=== PATIENT | male | born 1955 | race American Indian/Alaskan Native ===

== ENCOUNTER 2017-12-10 08:47 | Inpatient (IN) | payer BC, MEDICARE ==
[2017-12-10 08:48] VITALS: BMI 23.7
--- NOTE | 2017-12-10 09:10 | C.PDOC ---
History Of Present Illness 62-year-old male, PMHx includes depression, is transferred from [place] for psych admission. Patient denies any new complaints at this time. (Anais Oseguera) History Per: Patient History/Exam Limitations: no limitations Time Seen by Provider: 12/10/17 08:59 Chief Complaint (Nursing): Psychiatric Evaluation Past Medical History Reviewed: Historical Data, Nursing Documentation, Vital Signs - Medical History PMH: Anxiety, Arthritis, Bipolar Disorder, COPD, Depression, Fractures (history) , HTN, Rheumatoid Arthritis, Schizophrenia Denies: Alzheimer's Disease, Anemia, Asthma, Atrial Fibrillation, Bronchitis , Cardia Arrhythmia, CHF, Crohn's Disease, Dementia, Diabetes, Diverticulitis, Emphysema, Gastritis, Gall Bladder Disease, Hepatitis, HIV, Hypercholesterolemia , Hyperthyroidism, Hypothyroidism, Kidney Stones, Migraine, Mitral Valve Prolapse, Multiple Sclerosis, Osteoporosis, Pancreatitis, Parkinson's Disease, Peripheral Edema, Personality Disorder, Pneumonia, Pulmonary Embolism, Chronic Kidney Disease, Seizures, Sickle Cell Disease, Sexually Transmitted Disease, Sleep Apnea, TIA Surgical History: Appendectomy Denies: CABG, Carotid Endarterectomy, Cholecystectomy, Coronary Stent, Pacemaker Family History: States: No Known Family Hx - Social History Hx Tobacco Use: No Hx Alcohol Use: Yes Hx Substance Use: Yes - Immunization History Hx Tetanus Toxoid Vaccination: No Hx Influenza Vaccination: No Hx Pneumococcal Vaccination: No Vital Signs: Last Vital Signs Temp 98.2 F 12/11/17 06:30 Pulse 76 12/11/17 06:30 Resp 18 12/11/17 06:30 BP 112/70 12/11/17 06:30 Pulse Ox 96 12/10/17 12:51 - [employer] Procedures C.A.T. SCAN OF ABDOMEN (09/12/99) CAUTERY TO STOP EPISTAX (10/13/99) DETOXIFICATION SERVICES FOR SUBSTANCE ABUSE TREATMENT (02/20/16) DPT ADMINISTRATION (05/29/13) GROUP INDUSTRIAL EDITOR FOR SUBSTANCE ABUSE TREATMENT, PSYCHOEDUCATION (02/20/16) INJECT/INFUSE NEC (06/03/13) MEDICATION MANAGEMENT (06/30/17) PERCUTAN NEEDLE BX OF LIVER (09/12/99) PSYCHIAT DRUG THERAP NEC (12/28/13) SUBMUC NASAL SEPT RESECT (10/13/99) VENOUS PUNCTURE NEC (05/29/13) Review Of Systems Psych: Positive for: Depression Physical Exam - Physical Exam Appears: Non-toxic, No Acute Distress, Other (Flat affect) Skin: Warm, Dry, Other (Vitiligo) Head: Atraumatic Eye(s): bilateral: PERRL Neck: Normal ROM Extremity: Normal ROM, No Deformity, No Swelling Neurological/Psych: Oriented x3 ED Course And Treatment O2 Sat by Pulse Oximetry: 96 (RA) Pulse Ox Interpretation: Normal Medical Decision Making Medical Decision Making: Patient is psych transfer from [place]. Medical chart reviewed. Patient accepted by Dr Snow. Patient appears nontoxic and offered no complaints in ED or during transport. He is stable for admission. (Anais Oseguera) I have reviewed the chart. I was available for consult. Do note the physical documentation was limited. Patient is not present in department for a physical by me. (Jonathon Ross) Disposition - Disposition Disposition Time: 09:10 - Disposition Disposition: HOSPITALIZED Condition: STABLE - Clinical Impression Clinical Impression: Depression, Polysubstance abuse - Scribe Statement The provider has reviewed the documentation as recorded by the Scribe (Osman Gonzalez) - Scribe Statement All medical record entries made by the Scribe were at my direction and personally dictated by me. I have reviewed the chart and agree that the record accurately reflects my personal performance of the history, physical exam, medical decision making, and the department course for this patient. I have also personally directed, reviewed, and agree with the discharge instructions and disposition. (Anais Oseguera) Decision To Admit - Pt Status Changed To: Hospital Disposition Of: Inpatient - Admit Certification Admit to Inpatient:: After my assessment, the patient will require hospitalization for at least two midnights. This is because of the severity of symptoms shown, intensity of services needed, and/or the medical risk in this patient being treated as an outpatient. - InPatient: Physician Admission Certification: I certify that this patient requires 2 or more midnights of care for the following reason:: patient accepted for admission to psych unit for depression and substance abuse by Dr Snow, review full chart from [place] - . Bed Request Type: Psychiatry Admitting Physician: Pawan Snow - . Patient Diagnosis: Depression, Polysubstance abuse
--- NOTE | 2017-12-10 10:08 | PCM.BM ---
<SohailLoulou nashanta - Last Filed: 12/10/17 10:07> Treatment Plan Problems - Problems identified on initial assessmt Depression Date Initiated: 12/10/17 Time Initiated: 10:07 Assessment reference: NA Status: Active Suicidal Ideation Date Initiated: 12/10/17 Time Initiated: 10:07 Assessment reference: NA Status: Monitor Treatment assets and liabiliti Patient Assests: cooperative, negotiates basic needs, cognitively intact Patient Liabilities: substance abuse - Milieu Protocol Maintain good personal hygiene: every shift Encourage regular showers, every shift Remind patient to perform daily oral care, every shift Assist patient to perform ADL's Maintain personal safety: every shift Educate patient to report safety concerns to staff, every shift Monitor environment for contraband/sharps Medication safety: Monitor for expected outcome, potential side effects: every shift, Assess barriers to learning: every shift, Assess readiness for medication education: every shift <Brayan Maxwell - Last Filed: 12/11/17 10:57> - Diagnosis (1) Bipolar disorder with psychotic features Status: Chronic Interventions: 12/11/17 10:57 * Assess/adjust medications daily and /or as needed * See patient on an individual basis 7x/week to assess level of manic behaviors and stability * Discuss risks, benefits, side effects and alternatives of medications * (2) Alcohol abuse Status: Acute Interventions: 12/11/17 10:57 * Assess 7x/week regarding severity of withdrawal * Educate regarding risks, benefits, side effects and alternatives of medications * Use Motivational Interviewing for abstinence * Use CBT for relapse prevention * Medication management for withdrawal symptoms * Encourage medication assisted treatment * <Kaylan Sherman - Last Filed: 12/12/17 11:39> Family Contact Family involvement: Famliy/SO not involved - Goals for Treatment Patient goals for treatment: "I need help with housing." Discharge/Continuing Care - Education Needs Education Needs: Patient Medication, Patient Coping Skills, Patient Placement options, Patient Community resources - Discharge Discharge Criteria: Tolerates medication w/o severe side effects, Free of Suicidal thoughts, Reduction of target symptoms Discharge to:: Long-Term - Treatment Team Participation Discussed with Family/SO: No Was Patient/Family/SO present at Treatment Team Meeting: Yes
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
[2017-12-10] MEDS ORDERED: Aluminum Hydroxide/Magnesium Hydroxide Susp (30 mL) PO PRN (13:18)
[2017-12-10] MEDS: Divalproex 250 mg DR Tab PO SCH (18:55)
[2017-12-10] MEDS: Silver Sulfadiazine 1% Cream (20 gm) TOP SCH (18:56)
[2017-12-11] MEDS: Divalproex 250 mg DR Tab PO SCH ×2 (10:07→17:20)
[2017-12-11] MEDS: Multivitamin With Minerals Tab PO SCH (10:52)
[2017-12-11] MEDS: Silver Sulfadiazine 1% Cream (20 gm) TOP SCH ×2 (10:53→17:57)
--- NOTE | 2017-12-11 10:55 | PCM.PYCHPN ---
Psychiatric Progress Note - Psychiatric Progress Note Patient seen today, length of contact: 15 min Patient Chief Complaint: I was feeling depressed.' Problems Identified/Issues Discussed: Patient seen and evaluated, chart reviewed and discussed with the nurse. Pt reports some improvement in his depressed mood and irritability. He still reports of hearing voices. He still reports withdrawal s/s including sweating, nausea and headaches. Patient is compliant with medications and denies any side effects. Symptoms are improving but need more time to stabilize. Support and psychoeducation given. Medication Change: Yes (Ativan Taper) Medical Record Reviewed: Yes Mental Status Examination - Cognitive Function Orientation: Person, Place, Situation, Time Memory: Intact Attention: WNL Concentration: Poor Association: WNL Fund of Knowledge: Poor - Mood Mood: Depressed, Anxious - Affect Affect: Constricted - Speech Speech: Soft - Formal Thought Process Formal Thought Process: Paranoia, Flight of ideas - Suicidal Ideation Suicidal Ideation: No - Homicidal Ideation Homicidal Ideation: No Goal/Treatment Plan - Goal/Treatment Plan Need for Continued Stay: Severe depression anxiety, Severe functional impairment Progress Toward Problem(s) and Goals/Treatment Plan: Bipolar disorder mixed severe with psychotic features CBT Psychoeducation Supportive therapy, group therapy, individual therapy Depakote 250 mg pO BID Seroquel 150 mg mg by mouth daily at bedtime Alcohol use disorder severe CBT Psychoeducation Supportive therapy, individual therapy Use [place] for abstinence Alcohol withdrawal CBT Psychoeducation Supportive therapy, individual therapy Ativan taper when scoring Ativan PRN Sedative / hypnotic use disorder severe CBT Psychoeducation Supportive therapy, individual therapy Use LA for abstinence Opioid use disorder moderate CBT Psychoeducation Supportive therapy, individual therapy Use LA for abstinence - Smoking Cessation Smoking Cessation Initiated: No
[2017-12-12] MEDS: Multivitamin With Minerals Tab PO SCH (08:53)
[2017-12-12] MEDS: Divalproex 250 mg DR Tab PO SCH ×2 (10:02→17:37)
[2017-12-12] MEDS: Silver Sulfadiazine 1% Cream (20 gm) TOP SCH ×2 (10:04→17:39)
--- NOTE | 2017-12-12 15:23 | PCM.PYCHPN ---
Psychiatric Progress Note - Psychiatric Progress Note Patient seen today, length of contact: 15 min Patient Chief Complaint: I was feeling depressed.' Problems Identified/Issues Discussed: Patient seen and evaluated, chart reviewed and discussed with the nurse. Pt reports some improvement in his depressed mood and irritability. He still reports of hearing voices. He still reports withdrawal s/s including sweating, nausea and headaches. Patient is compliant with medications and denies any side effects. Symptoms are improving but need more time to stabilize. Support and psychoeducation given. Medication Change: Yes (Ativan Taper) Medical Record Reviewed: Yes Mental Status Examination - Cognitive Function Orientation: Person, Place, Situation, Time Memory: Intact Attention: WNL Concentration: Poor Association: WNL Fund of Knowledge: Poor - Mood Mood: Depressed, Anxious - Affect Affect: Constricted - Speech Speech: Soft - Formal Thought Process Formal Thought Process: Paranoia, Flight of ideas - Suicidal Ideation Suicidal Ideation: No - Homicidal Ideation Homicidal Ideation: No Goal/Treatment Plan - Goal/Treatment Plan Need for Continued Stay: Severe depression anxiety, Severe functional impairment Progress Toward Problem(s) and Goals/Treatment Plan: Bipolar disorder mixed severe with psychotic features CBT Psychoeducation Supportive therapy, group therapy, individual therapy Depakote 250 mg pO BID Seroquel 150 mg mg by mouth daily at bedtime Alcohol use disorder severe CBT Psychoeducation Supportive therapy, individual therapy Use [place] for abstinence Alcohol withdrawal CBT Psychoeducation Supportive therapy, individual therapy Ativan taper when scoring Ativan PRN Sedative / hypnotic use disorder severe CBT Psychoeducation Supportive therapy, individual therapy Use SC for abstinence Opioid use disorder moderate CBT Psychoeducation Supportive therapy, individual therapy Use SC for abstinence
[2017-12-13] MEDS: Multivitamin With Minerals Tab PO SCH (08:11)
[2017-12-13] MEDS ORDERED: Pneumococcal 23-Valent Vaccine IM ONE (10:00)
[2017-12-13] MEDS ORDERED: Influenza Vaccine 60 mcg/0.5 mL SYR (4YR UP) IM ONE (10:00)
[2017-12-13] MEDS: Divalproex 250 mg DR Tab PO SCH ×2 (10:01→17:47)
[2017-12-13] MEDS: Silver Sulfadiazine 1% Cream (20 gm) TOP SCH ×2 (10:01→17:47)
--- NOTE | 2017-12-13 11:21 | PCM.PYCHPN ---
Psychiatric Progress Note - Psychiatric Progress Note Patient seen today, length of contact: 15 min Patient Chief Complaint: I was feeling little better.' Problems Identified/Issues Discussed: Patient seen and evaluated, chart reviewed and discussed with the nurse. Pt reports some improvement in his depressed mood and irritability. He reports some improvement in the voices. He still reports withdrawal s/s including sweating, nausea and headaches. Patient is compliant with medications and denies any side effects. Symptoms are improving but need more time to stabilize. Support and psychoeducation given. Medication Change: Yes (Ativan Taper) Medical Record Reviewed: Yes Mental Status Examination - Cognitive Function Orientation: Person, Place, Situation, Time Memory: Intact Attention: WNL Concentration: Poor Association: WNL Fund of Knowledge: Poor - Mood Mood: Depressed, Anxious - Affect Affect: Constricted - Speech Speech: Soft - Formal Thought Process Formal Thought Process: Paranoia, Flight of ideas - Suicidal Ideation Suicidal Ideation: No - Homicidal Ideation Homicidal Ideation: No Goal/Treatment Plan - Goal/Treatment Plan Need for Continued Stay: Severe depression anxiety, Severe functional impairment Progress Toward Problem(s) and Goals/Treatment Plan: Bipolar disorder mixed severe with psychotic features CBT Psychoeducation Supportive therapy, group therapy, individual therapy Depakote 250 mg pO BID Seroquel 200 mg mg by mouth daily at bedtime Alcohol use disorder severe CBT Psychoeducation Supportive therapy, individual therapy Use PR for abstinence Alcohol withdrawal CBT Psychoeducation Supportive therapy, individual therapy Ativan taper when scoring Ativan PRN Sedative / hypnotic use disorder severe CBT Psychoeducation Supportive therapy, individual therapy Use PR for abstinence Opioid use disorder moderate CBT Psychoeducation Supportive therapy, individual therapy Use PR for abstinence - Smoking Cessation Smoking Cessation Initiated: No
[2017-12-14] MEDS: Multivitamin With Minerals Tab PO SCH (08:37)
[2017-12-14] MEDS: Divalproex 250 mg DR Tab PO SCH ×2 (09:31→17:23)
[2017-12-14] MEDS: Silver Sulfadiazine 1% Cream (20 gm) TOP SCH ×2 (09:31→17:22)
--- NOTE | 2017-12-14 13:29 | PCM.PYCHPN ---
Psychiatric Progress Note - Psychiatric Progress Note Patient seen today, length of contact: 15 min Patient Chief Complaint: Still feeling depressed Problems Identified/Issues Discussed: Patient seen, chart reviewed, case discussed with the staff. Issues related to illness and treatment were discussed with the patient. Reported compliant with treatment with no adverse affects. Reported still feeling depression because of his situation and also pain in his hands secondary to ogden. Affect appropriate. Patient is becoming better, he needs more time. Stabilization. Awake alert oriented 3, no delusions, no auditory or visual hallucinations, no suicidal ideations or homicidal ideations at the time of evaluation. Medical Problems: Unknown. Patient does not know but according to record sometime patient mentioned liver cancer and other times some heart problems. Diagnostic Results: Reviewed DSM 5 Symptoms Update: Some improvement with treatment Medication Change: No Medical Record Reviewed: Yes Mental Status Examination - Cognitive Function Orientation: Person, Place, Situation, Time Memory: Intact Attention: WNL Concentration: WNL Association: WN Fund of Knowledge: [facility] Decription of patient's judgement and insights: Fair - Mood Mood: Depressed (Less than before) - Affect Affect: Depressed - Speech Speech: Soft - Formal Thought Process Formal Thought Process: No Impairment - Suicidal Ideation Suicidal Ideation: No - Homicidal Ideation Homicidal Ideation: No Goal/Treatment Plan - Goal/Treatment Plan Need for Continued Stay: Remain at risks for inpatient hospitalization, Discharge may exacerbated symptoms, Severe functional impairment Progress Toward Problem(s) and Goals/Treatment Plan: Patient education Supportive therapy Continue treatment as before. Estimated Date of D/C: 12/20/17 - Smoking Cessation Smoking Cessation Initiated: No
[2017-12-15] MEDS: Multivitamin With Minerals Tab PO SCH (08:35)
[2017-12-15] MEDS: Divalproex 250 mg DR Tab PO SCH ×2 (09:02→17:16)
[2017-12-15] MEDS: Silver Sulfadiazine 1% Cream (20 gm) TOP SCH ×2 (09:02→17:48)
--- NOTE | 2017-12-15 13:21 | PCM.PYCHPN ---
Psychiatric Progress Note - Psychiatric Progress Note Patient seen today, length of contact: 15 min Patient Chief Complaint: Still feeling depressed but less than before. Problems Identified/Issues Discussed: Patient seen, chart reviewed, case discussed with the staff. Issues related to illness and treatment were discussed with the patient. Reported compliant with treatment with no adverse affects. Reported still feeling depression because of his situation and also pain in his hands secondary to ogden. Patient also expressed that his depression is less than before. Affect appropriate. Patient is becoming better, he needs more time for Stabilization. Awake alert oriented 3, no delusions, no auditory or visual hallucinations, no suicidal ideations or homicidal ideations at the time of evaluation. Medical Problems: Unknown. Patient does not know but according to record sometime patient mentioned liver cancer and other times some heart problems. Diagnostic Results: Reviewed DSM 5 Symptoms Update: Improving with treatment Medication Change: No Medical Record Reviewed: Yes Mental Status Examination - Cognitive Function Orientation: Person, Place, Situation, Time Memory: Intact Attention: WNL Concentration: WNL Association: WN Fund of Knowledge: [facility] Decription of patient's judgement and insights: Fair - Mood Mood: Depressed (Less than before) - Affect Affect: Other (Appropriate) - Speech Speech: Soft - Formal Thought Process Formal Thought Process: No Impairment - Suicidal Ideation Suicidal Ideation: No - Homicidal Ideation Homicidal Ideation: No Goal/Treatment Plan - Goal/Treatment Plan Need for Continued Stay: Remain at risks for inpatient hospitalization, Discharge may exacerbated symptoms, Severe functional impairment Progress Toward Problem(s) and Goals/Treatment Plan: Patient education Supportive therapy Continue treatment as before. Estimated Date of D/C: 12/20/17 - Smoking Cessation Smoking Cessation Initiated: No
[2017-12-16] MEDS: Multivitamin With Minerals Tab PO SCH (08:43)
[2017-12-16 09:02] VITALS: O2SAT 99
[2017-12-16] MEDS: Divalproex 250 mg DR Tab PO SCH ×2 (10:15→17:03)
[2017-12-16] MEDS: Silver Sulfadiazine 1% Cream (20 gm) TOP SCH ×2 (10:15→17:04)
--- NOTE | 2017-12-16 11:15 | PCM.PYCHPN ---
Psychiatric Progress Note - Psychiatric Progress Note Patient seen today, length of contact: 15 min Patient Chief Complaint: I was feeling depressed.' Problems Identified/Issues Discussed: Patient seen and evaluated, chart reviewed and discussed with the nurse. Pt reports some improvement in his depressed mood and irritability. He still reports of hearing voices. He still reports withdrawal s/s including sweating, nausea and headaches. Patient is compliant with medications and denies any side effects. Symptoms are improving but need more time to stabilize. Support and psychoeducation given. Medication Change: Yes (Ativan Taper) Medical Record Reviewed: Yes Mental Status Examination - Cognitive Function Orientation: Person, Place, Situation, Time Memory: Intact Attention: WNL Concentration: Poor Association: WNL Fund of Knowledge: Poor - Mood Mood: Depressed, Anxious - Affect Affect: Constricted - Speech Speech: Soft - Formal Thought Process Formal Thought Process: Paranoia, Flight of ideas - Suicidal Ideation Suicidal Ideation: No - Homicidal Ideation Homicidal Ideation: No Goal/Treatment Plan - Goal/Treatment Plan Need for Continued Stay: Severe depression anxiety, Severe functional impairment Progress Toward Problem(s) and Goals/Treatment Plan: Bipolar disorder mixed severe with psychotic features CBT Psychoeducation Supportive therapy, group therapy, individual therapy Depakote 250 mg pO BID Seroquel 150 mg mg by mouth daily at bedtime Alcohol use disorder severe CBT Psychoeducation Supportive therapy, individual therapy Use [place] for abstinence Alcohol withdrawal CBT Psychoeducation Supportive therapy, individual therapy Ativan taper when scoring Ativan PRN Sedative / hypnotic use disorder severe CBT Psychoeducation Supportive therapy, individual therapy Use [place] for abstinence Opioid use disorder moderate CBT Psychoeducation Supportive therapy, individual therapy Use [place] for abstinence Estimated Date of D/C: 12/20/17
[2017-12-17] MEDS: Multivitamin With Minerals Tab PO SCH (08:01)
[2017-12-17 08:55] VITALS: BP 106/70; PULSE 97; RESP 18; TEMP 98.6
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
[2017-12-17] MEDS: Divalproex 250 mg DR Tab PO SCH (09:46)
[2017-12-17] MEDS: Silver Sulfadiazine 1% Cream (20 gm) TOP SCH (09:51)
== END 2017-12-17 11:43 | disposition home or self-care (01) | DRG 895 ==
LOC: C.ER 08:47 → C.5E 09:00
PROC: HZ2ZZZZ Detoxification Services for Substance Abuse Treatment (ICD-10-PCS; principal; 2017-12-10)
PROC: HZ52ZZZ Individual Psychotherapy for Substance Abuse Treatment, Cognitive-Behavioral (ICD-10-PCS; 2017-12-10)
PROC: HZ42ZZZ Group Counseling for Substance Abuse Treatment, Cognitive-Behavioral (ICD-10-PCS; 2017-12-10)
PROC: HZ59ZZZ Individual Psychotherapy for Substance Abuse Treatment, Supportive (ICD-10-PCS; 2017-12-10)
PROC: HZ56ZZZ Individual Psychotherapy for Substance Abuse Treatment, Psychoeducation (ICD-10-PCS; 2017-12-10)
PROC: HZ46ZZZ Group Counseling for Substance Abuse Treatment, Psychoeducation (ICD-10-PCS; 2017-12-10)
PROC: GZHZZZZ Group Psychotherapy (ICD-10-PCS; 2017-12-10)
PROC: GZ58ZZZ Individual Psychotherapy, Cognitive-Behavioral (ICD-10-PCS; 2017-12-10)
PROC: GZ56ZZZ Individual Psychotherapy, Supportive (ICD-10-PCS; 2017-12-10)
DX: F10.230 Alcohol dependence with withdrawal, uncomplicated (principal); R45.851 Suicidal ideations; F31.64 Bipolar disorder, current episode mixed, severe, with psychotic features; F13.20 Sedative, hypnotic or anxiolytic dependence, uncomplicated; I10 Essential (primary) hypertension; J44.9 Chronic obstructive pulmonary disease, unspecified; M06.9 Rheumatoid arthritis, unspecified; G89.29 Other chronic pain; M25.569 Pain in unspecified knee; F11.90 Opioid use, unspecified, uncomplicated; F39 Unspecified mood [affective] disorder

== ENCOUNTER 2019-02-04 08:02 | Day surgery (SDC) | payer MEDICARE ==
[2019-02-02 12:46] VITALS: BMI 26.3
[2019-02-04] MEDS ORDERED: cefTRIAXone 1 gm 1 GM/100 ML BAG IVPB ONE (13:01)
[2019-02-04] MEDS ORDERED: Iohexol 240 (50 ml) ONE (13:02)
[2019-02-04] MEDS ORDERED: Lidocaine 2% Jelly (Uro-Jet) ONE (13:03)
[2019-02-04] MEDS ORDERED: Midazolam 2 MG/2 ML VIAL ONE (13:04)
[2019-02-04] MEDS ORDERED: Propofol 10 mg/ml Inj (20 ML) ONE (13:04)
--- NOTE | 2019-02-04 14:01 | PCM.SURG1 ---
Surgeon's Initial Post Op Note - Surgeon's Notes Surgeon: Rebecca Finn Blindstitch Lapel Padder: none Type of Anesthesia: General LMA Pre-Operative Diagnosis: R hydronephrosis. retained R ureteral stent Operative Findings: same Post-Operative Diagnosis: same Operation Performed: same Specimen/Specimens Removed: urine. stones from distal stent coils Estimated Blood Loss: EBL {In ML}: 0 Blood Products Given: N/A Post-Op Condition: Good Date of Surgery/Procedure: 02/04/19 Time of Surgery/Procedure: 13:50
[2019-02-04] MEDS ORDERED: HYDROmorphone 0.5 mg/0.5 ml ISec IVP PRN (14:06)
[2019-02-04] MEDS ORDERED: HYDROmorphone 0.5 mg/0.5 ml ISec ONE (14:15)
--- NOTE | 2019-02-04 14:28 | RAD ---
Date of service: 02/04/2019 PROCEDURE: Intraoperative Fluoroscopy. HISTORY: RT RETAINED URETERAL STENT FINDINGS: Fluoroscopic assistance was provided for retrograde and stent placement. Total fluoroscopic time (continuous mode) utilized during the procedure 42.7 seconds. Dose report: DLP 1.31 (mGy/m2) Please refer to the operative report from Dr. TUTTLE, KENWOOD.
[2019-02-04 14:52] VITALS: TEMP 97.8
[2019-02-04 15:46] VITALS: RESP 18
[2019-02-04 18:09] VITALS: BP 136/86; PULSE 100; O2SAT 99
--- NOTE | 2019-02-06 14:39 | OP ---
PROCEDURE DATE: 02/04/2019 PREOPERATIVE DIAGNOSES: Right hydronephrosis. Retained right ureteral stent. POSTOPERATIVE DIAGNOSES: Right hydronephrosis. Retained right ureteral stent. Encrusted stent. Bladder calculi. PROCEDURES: Cystoscopy. Right retrograde ureteral pyelogram. Removal of right ureteral stent. Removal of bladder calculi. Insertion of right ureteral stent. Exam under anesthesia/anorectal examination. OPERATING SURGEON: Dr. Marilou Finn. DESCRIPTION OF PROCEDURE: As follows. The patient received perioperative antibiotics. Procedure was performed under video endoscopic control as well as under fluoroscopic control. The patient received anesthesia. The patient was placed in lithotomy position. Genitalia prepped and draped sterilely. Supervisor Evaporator film of the abdomen was obtained. The right ureteral stent was in proper position at the proximal end over the right kidney and distal end over the bladder. A 22-Amharic cystoscope sheath was introduced under direct vision. Urethra, prostate and bladder were inspected with 30-degree lens. FINDINGS: There was no stricture in the anterior urethra. There was trilobar prostatic hypertrophy which was subocclusive. There was moderate cystitis. There was encrustation of the coils of the right ureteral stent in the bladder. The left ureteral orifice was normal. There was moderate edema and inflammation of the right trigone and right ureteral orifice. A 0.035-inch guidewire was inserted into the right ureteral orifice and passed up to level of kidney. The cystoscope was removed. Cystoscope was reintroduced adjacent to the guidewire. There were multiple small stones within the bladder as well. These were removed with grasping forceps. The stent was freed from its stones using the grasping forceps to crush the stones. The stent was then grasped with grasping forceps and gently removed. The stent was able to be removed intact. There were no calcifications noted at the proximal end of the stent, thus allowing stent removal. An open-end catheter was inserted over the guidewire. Retrograde ureteral pyelogram demonstrated marked right hydronephrosis and right hydroureteronephrosis down to at least the level of the mid ureter. The guidewire was reinserted. There were no stones noted along the course of the ureter. The guidewire was reinserted. The cystoscope was backloaded over the guidewire. A 6-Amharic multilength stent was inserted over the guidewire. Proper stent position within the right renal pelvis as well as within the bladder was confirmed with fluoroscopy and endoscopy. The guidewire was removed. The stent was left in place. The distal suture was left to exit per urethra from the stent. The bladder was then drained, cystoscope and sheath removed. Exam under anesthesia/anorectal examination was performed. Prostate was supple and smooth, approximately 25 g in size. There was no abnormal pelvic mass fixation or induration. There was no bladder induration. The patient was returned to the supine position. The patient tolerated procedure without complication. Marilou Finn MD
== END 2019-02-04 17:50 | disposition home or self-care (01) ==
LOC: C.SDS 08:02
PROVIDERS: ATTEND Urology
DX: N21.0 Calculus in bladder (principal); N13.30 Unspecified hydronephrosis
CPT/HCPCS: 50385; 74018; 82355; 82365; 87086; 88300; J0696; J1170